=== PATIENT | male | born 1985 | race African-American/Black ===

== ENCOUNTER 2018-09-24 15:20 | Emergency (ER) | payer OTHER ==
[~2018-09-24] VITALS: Ht 193 cm; Wt 113.5 kg
[2018-09-24] MEDS ORDERED: LORazepam 1MG TABLET PO ONE (16:00)
[2018-09-24 16:18] LABS: ALBUMIN 3.9 g/dL (3.4-5.0); ANION GAP 6 mmol/L (5-15); CALCIUM 8.8 mg/dL (8.5-10.1); CHLORIDE 106 mmol/L (98-107); CREATININE 1.26 mg/dL (0.7-1.3)
[2018-09-24 16:22] LABS: BASOPHILS # (AUTO) 0.04 x10^3/uL (0-0.1); BASOPHILS % (AUTO) 0 % (0-1); EOSINOPHILS # (AUTO) 0.04 x10^3/uL (0-0.4); EOSINOPHILS % (AUTO) 0 % (1-7); LYMPHOCYTES # (AUTO) 1.48 x10^3/uL (1-3.4); LYMPHOCYTES % (AUTO) 14 % (22-44); MD NO; MEAN CORPUSCULAR HEMOGLOBIN 28.6 pg (27.5-34.5); MEAN CORPUSCULAR HGB CONC 33.9 g/dL (33.2-36.2); MEAN CORPUSCULAR VOLUME 84.6 fL (81-97); MEAN PLATELET VOLUME 7.1 fL (7.4-10.4); MONOCYTES # (AUTO) 0.55 x10^3/uL (0.2-0.8); MONOCYTES % (AUTO) 5 % (2-9); NEUTROPHILS # (AUTO) 8.15 x10^3/uL (1.8-6.8); NEUTROPHILS % (AUTO) 79 % (42-75); PLATELET COUNT 295 x10^3/uL (130-400); RED BLOOD COUNT 4.77 x10^6/uL (4.38-5.82); RED CELL DISTRIBUTION WIDTH 13.8 % (9.4-14.8); TROPONIN I < 0.015 ng/mL (0.000-0.045)
[2018-09-24] MEDS ORDERED: LORazepam 1MG TABLET ONE (16:33)
[2018-09-24 16:35] VITALS: BP 158/77
== END 2018-09-24 17:49 | disposition home or self-care (01) ==
LOC: ED 17:15
DX: R06.00 Dyspnea, unspecified (principal); R07.89 Other chest pain; F43.0 Acute stress reaction; F41.9 Anxiety disorder, unspecified; J45.909 Unspecified asthma, uncomplicated
CPT/HCPCS: 36415; 71045; 80048; 82040; 84484; 85025; 93005; 99284